=== PATIENT | female | born 1970 | race Caucasian/White ===

== ENCOUNTER 2016-11-24 15:28 | Inpatient (IN) | payer OTHER ==
[~2016-11-24] VITALS: Ht 170.2 cm; Wt 95.9 kg
[2016-11-24 15:29] VITALS: BP 121/64; PULSE 84; RESP 14; TEMP 98.3; O2SAT 99
--- NOTE | 2016-11-24 15:47 | PD ---
HPI Chief Complaint: Psychiatric Symptoms Time Seen by Provider: 15:47 Travel History International Travel<30 days: No Contact w/Intl Traveler<30days: No Traveled to known affect area: No History of Present Illness HPI This is a 46-year-old female with history of bipolar schizoaffective disorder, PTSD, presents to emergency department voluntarily for psychiatric evaluation. Patient states that she has been having thoughts of suicide with active plan to take her medication and overdose. Patient's accompanied by a female who states she has not been consistently taking her medication. She's been having more bizarre behavior. Patient also reports hearing voices. Denies any illicit drug use. Denies any alcohol consumption. Denies any acute medical needs. No other symptoms to report. PFSH Past Medical History Bipolar Disorder: Yes Schizophrenia: Yes Social History Alcohol Use: No Tobacco Use: No Substance Use: No Allergies-Medications (Allergen,Severity, Reaction): Coded Allergies: No Known Allergies (Unverified , 11/24/16) Review of Systems Except as stated in HPI: all other systems reviewed are Neg Physical Exam Narrative GENERAL: Well-nourished female patient, in no acute distress SKIN: Focused skin assessment warm/dry. HEAD: Atraumatic. Normocephalic. EYES: Pupils equal and round. No scleral icterus. No injection or drainage. ENT: No nasal bleeding or discharge. Mucous membranes pink and moist. NECK: Trachea midline. No JVD. CARDIOVASCULAR: Regular rate and rhythm. No murmur appreciated. RESPIRATORY: No accessory muscle use. Clear to auscultation. Breath sounds equal bilaterally. GASTROINTESTINAL: Abdomen soft, non-tender, nondistended. Hepatic and splenic margins not palpable. MUSCULOSKELETAL: No obvious deformities. No clubbing. No cyanosis. No edema. NEUROLOGICAL: Awake and alert. No obvious cranial nerve deficits. Motor grossly within normal limits. Normal speech. Data Data Last Documented VS Vital Signs Date Time Temp Pulse Resp B/P Pulse Ox O2 Delivery O2 Flow Rate FiO2 11/24/16 15:29 98.3 84 14 121/64 99 Orders Complete Blood Count With Diff (11/24/16 15:47) Basic Metabolic Panel (Bmp) (11/24/16 15:47) Urinalysis - C+S If Indicated (11/24/16 15:47) Psych Screen (11/24/16 15:47) Drug Screen, Random Urine (11/24/16 15:47) Alcohol (Ethanol) (11/24/16 15:47) Lorazepam (Ativan) (11/24/16 16:00) Labs Laboratory Tests Test 11/24/16 16:20 White Blood Count 8.7 TH/MM3 Red Blood Count 3.86 MIL/MM3 Hemoglobin 12.6 GM/DL Hematocrit 37.7 % Mean Corpuscular Volume 97.6 FL Mean Corpuscular Hemoglobin 32.6 PG Mean Corpuscular Hemoglobin 33.4 % Concent Red Cell Distribution Width 14.0 % Platelet Count 287 TH/MM3 Mean Platelet Volume 8.2 FL Neutrophils (%) (Auto) 61.9 % Lymphocytes (%) (Auto) 27.8 % Monocytes (%) (Auto) 6.6 % Eosinophils (%) (Auto) 2.9 % Basophils (%) (Auto) 0.8 % Neutrophils # (Auto) 5.4 TH/MM3 Lymphocytes # (Auto) 2.4 TH/MM3 Monocytes # (Auto) 0.6 TH/MM3 Eosinophils # (Auto) 0.3 TH/MM3 Basophils # (Auto) 0.1 TH/MM3 CBC Comment DIFF FINAL Differential Comment Sodium Level 141 MEQ/L Potassium Level 4.3 MEQ/L Chloride Level 108 MEQ/L Carbon Dioxide Level 29.5 MEQ/L Anion Gap 4 MEQ/L Blood Urea Nitrogen 5 MG/DL Creatinine 0.95 MG/DL Estimat Glomerular Filtration 63 ML/MIN Rate Random Glucose 82 MG/DL Calcium Level 8.9 MG/DL Urine Opiates Screen NEG Urine Barbiturates Screen NEG Urine Amphetamines Screen NEG Urine Benzodiazepines Screen NEG Urine Cocaine Screen NEG Urine Cannabinoids Screen NEG Ethyl Alcohol Level LESS THAN 3 MG/DL [facility] Medical Decision Making Medical Screen Exam Complete: Yes Emergency Medical Condition: Yes Medical Record Reviewed: Yes Differential Diagnosis Mood disorder versus personality disorder versus adjustment reaction disorder versus medication noncompliance Narrative Course 46-year-old female presents to the emergency department for evaluation. Patient appears distressed. She is reporting feeling very anxious about being here. Patient states that she needs psychiatric help. Lab work is without acute concern. Toxicology is negative. Patient is medically cleared to undergo psychiatric screening for further evaluation and disposition. Mental health screening discussed with the patient. Psychiatric screen ordered. Diagnosis Primary Impression: Mood disorder Additional Impression: Suicidal thoughts Condition: Stable Angela Renner Nov 24, 2016 15:47
[2016-11-24] MEDS ORDERED: LORazepam 1 MG TAB PO ONE (16:00)
[2016-11-24 16:57] LABS: AUTOMATED NEUTROPHIL # 5.4 TH/MM3 (1.8-7.7); BASOPHIL # 0.1 TH/MM3 (0-0.2); BASOPHIL % 0.8 % (0.0-2.0); EOSINOPHIL # 0.3 TH/MM3 (0-0.4); EOSINOPHIL % 2.9 % (0.0-4.0); HEMATOCRIT 37.7 % (35.0-46.0); HEMO FLAGS DIFF FINAL; LYMPH % 27.8 % (9.0-44.0); LYMPHOCYTE # 2.4 TH/MM3 (1.0-4.8); MEAN CELL VOLUME 97.6 FL (80.0-100.0); MEAN CORPUSCULAR HEMOGLOBIN 32.6 PG (27.0-34.0); MEAN CORPUSCULAR HGB CONC 33.4 % (32.0-36.0); MONO % 6.6 % (0.0-8.0); NEUT % 61.9 % (16.0-70.0); PLATELET COUNT 287 TH/MM3 (150-450); RED BLOOD COUNT 3.86 MIL/MM3 (4.00-5.30); WHITE BLOOD COUNT 8.7 TH/MM3 (4.0-11.0)
[2016-11-24 17:01] LABS: AMPHETAMINE, URINE NEG (NEG); BARBITURATES, URINE NEG (NEG); COCAINE, URINE NEG (NEG)
[2016-11-24 17:03] LABS: ANION GAP 4 MEQ/L (5-15); BICARBONATE 29.5 MEQ/L (21.0-32.0); BLOOD UREA NITROGEN 5 MG/DL (7-18); CHLORIDE 108 MEQ/L (98-107); GLOMERULAR FILTRATION RATE 63 ML/MIN (>89); POTASSIUM 4.3 MEQ/L (3.5-5.1); SODIUM (NA) 141 MEQ/L (136-145)
[2016-11-24] MEDS ORDERED: LURA120T PO (17:53)
[2016-11-24] MEDS ORDERED: LAMO150T PO (17:53)
[2016-11-24] MEDS ORDERED: FLUO40CA PO (17:53)
[2016-11-24] MEDS ORDERED: GABA600T PO (17:53)
[2016-11-24 18:18] VITALS: BP 122/67; PULSE 58; RESP 16; TEMP 92.2; O2SAT 100
[2016-11-24 22:15] VITALS: BP 120/71; PULSE 59; RESP 19; TEMP 96.8; O2SAT 98
[2016-11-25] MEDS ORDERED: diphenhydrAMINE HCL 50 MG/ML VIAL - HS PRN IM (00:30)
[2016-11-25] MEDS ORDERED: ACETAMINOPHEN 325 MG TAB PO PRN ×2 (00:30→11:30)
[2016-11-25] MEDS ORDERED: diphenhydrAMINE HCL 50 MG/ML VIAL IM PRN (00:30)
[2016-11-25] MEDS ORDERED: MAGNESIUM HYDROXIDE SUSP 30 ML CUP PO PRN ×2 (00:30→11:30)
[2016-11-25] MEDS ORDERED: diphenhydrAMINE HCL 50 MG CAP PO PRN (00:30)
[2016-11-25] MEDS ORDERED: ALUMINUM/MAGNESIUM/SIMETH 30 ML CUP PO PRN ×2 (00:30→11:30)
[2016-11-25 02:07] VITALS: BP 115/61; PULSE 59; RESP 20; TEMP 98.1; O2SAT 98
[2016-11-25] MEDS: traZODone HCL 50 MG TAB PO PRN ×2 (02:15→22:25)
[2016-11-25] MEDS: hydrOXYzine HCL 50 MG TAB PO PRN ×2 (02:15→22:25)
[2016-11-25 06:12] VITALS: BP 115/61; PULSE 59; RESP 20; TEMP 98.1; O2SAT 98
[2016-11-25] MEDS ORDERED: LURASIDONE 40 MG TAB PO SCH (09:00)
[2016-11-25] MEDS: lamoTRIgine 25 MG TAB PO SCH (09:32)
[2016-11-25] MEDS: lamoTRIgine 100 MG TAB PO SCH (09:32)
[2016-11-25] MEDS: FLUoxetine HCL 20 MG CAP PO SCH (09:33)
[2016-11-25] MEDS: NICOTINE 21 MG/24 HR PATCH T-DERMAL SCH (09:33)
[2016-11-25] MEDS ORDERED: lamoTRIgine 100 MG TAB PO SCH (11:30)
[2016-11-25] MEDS ORDERED: NICOTINE 21 MG/24 HR PATCH T-DERMAL SCH (11:30)
[2016-11-25] MEDS ORDERED: FLUoxetine HCL 20 MG CAP PO SCH (11:30)
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
[2016-11-25 16:02] VITALS: BP 115/66; PULSE 108; RESP 18; TEMP 96.5; O2SAT 97
[2016-11-25] MEDS: REMOVE OLD NICOTINE PATCH T-DERMAL SCH (21:00)
[2016-11-25] MEDS ORDERED: GABAPENTIN 300 MG CAP PO SCH (21:00)
[2016-11-25] MEDS: GABAPENTIN 300 MG CAP PO SCH (21:00)
[2016-11-26 06:15] VITALS: BP 106/56; PULSE 59; RESP 18; TEMP 98.1; O2SAT 99
[2016-11-26] MEDS: lamoTRIgine 100 MG TAB PO SCH (09:01)
[2016-11-26] MEDS: FLUoxetine HCL 20 MG CAP PO SCH (09:02)
[2016-11-26] MEDS: lamoTRIgine 25 MG TAB PO SCH (09:03)
[2016-11-26] MEDS: LURASIDONE 40 MG TAB PO SCH (09:03)
[2016-11-26] MEDS: NICOTINE 21 MG/24 HR PATCH T-DERMAL SCH (09:04)
[2016-11-26 10:42] LABS: ANION GAP 8 MEQ/L (5-15); BICARBONATE 25.8 MEQ/L (21.0-32.0); BLOOD UREA NITROGEN 10 MG/DL (7-18); CHLORIDE 107 MEQ/L (98-107); GLOMERULAR FILTRATION RATE 73 ML/MIN (>89); POTASSIUM 4.1 MEQ/L (3.5-5.1); SODIUM (NA) 141 MEQ/L (136-145)
[2016-11-26 10:45] LABS: LDL CHOLESTEROL 133 MG/DL (0-99)
[2016-11-26 12:42] LABS: AUTOMATED NEUTROPHIL # 6.1 TH/MM3 (1.8-7.7); BASOPHIL # 0.1 TH/MM3 (0-0.2); BASOPHIL % 0.8 % (0.0-2.0); EOSINOPHIL # 0.2 TH/MM3 (0-0.4); HEMATOCRIT 39.9 % (35.0-46.0); HEMO FLAGS DIFF FINAL; LYMPH % 16.6 % (9.0-44.0); LYMPHOCYTE # 1.4 TH/MM3 (1.0-4.8); MEAN CELL VOLUME 98.3 FL (80.0-100.0); MEAN CORPUSCULAR HEMOGLOBIN 32.9 PG (27.0-34.0); MEAN CORPUSCULAR HGB CONC 33.5 % (32.0-36.0); MONO % 5.5 % (0.0-8.0); NEUT % 74.1 % (16.0-70.0); PLATELET COUNT 271 TH/MM3 (150-450); RED BLOOD COUNT 4.06 MIL/MM3 (4.00-5.30); RED CELL DISTRIBUTION WIDTH 13.9 % (11.6-17.2); WHITE BLOOD COUNT 8.2 TH/MM3 (4.0-11.0)
[2016-11-26 13:03] LABS: HEMOGLOBIN A1a 1.6 %; HEMOGLOBIN A1b 0.8 %; HEMOGLOBIN Ao 85.4 %; HEMOGLOBIN F 0.8 %; HEMOGLOBIN P3 3.4 %
--- NOTE | 2016-11-26 14:04 | HHI.PYPN ---
Subjective Remarks Patient seen in her room with nurse Denice, chart review, patient compliant medication. Patient states she slept better last night though her mood remains depressed. She says the is suicidal thoughts are somewhat scattered today. She states she had a good conversation with her significant other. For now continue treatment Review of Systems Except as stated in HPI: all other systems reviewed are Neg Objective Alert: Yes [place]: Person, Place, Date Mood: Calm, Depressed Affect: Other (decreased range and intensity) Memory Intact: Comment (fair) Hallucinations: Other (denies) Delusions: No Delusion Type: Other (denies) Suicidal: Ideation (suicidal thoughts are somewhat intermittent) Homicidal: Ideation Insight/Judgment Poor Labs Test 11/26/16 11/26/16 09:56 11:37 Sodium Level 141 MEQ/L Potassium Level 4.1 MEQ/L Chloride Level 107 MEQ/L Carbon Dioxide Level 25.8 MEQ/L Anion Gap 8 MEQ/L Blood Urea Nitrogen 10 MG/DL Creatinine 0.84 MG/DL Estimat Glomerular Filtration 73 ML/MIN Rate Random Glucose 65 MG/DL Calcium Level 9.0 MG/DL Triglycerides Level 72 MG/DL Cholesterol Level 210 MG/DL LDL Cholesterol 133 MG/DL HDL Cholesterol 63.0 MG/DL Cholesterol/HDL Ratio 3.33 RATIO White Blood Count 8.2 TH/MM3 Red Blood Count 4.06 MIL/MM3 Hemoglobin 13.4 GM/DL Hematocrit 39.9 % Mean Corpuscular Volume 98.3 FL Mean Corpuscular Hemoglobin 32.9 PG Mean Corpuscular Hemoglobin 33.5 % Concent Red Cell Distribution Width 13.9 % Platelet Count 271 TH/MM3 Mean Platelet Volume 8.6 FL Neutrophils (%) (Auto) 74.1 % Lymphocytes (%) (Auto) 16.6 % Monocytes (%) (Auto) 5.5 % Eosinophils (%) (Auto) 3.0 % Basophils (%) (Auto) 0.8 % Neutrophils # (Auto) 6.1 TH/MM3 Lymphocytes # (Auto) 1.4 TH/MM3 Monocytes # (Auto) 0.5 TH/MM3 Eosinophils # (Auto) 0.2 TH/MM3 Basophils # (Auto) 0.1 TH/MM3 CBC Comment DIFF FINAL Differential Comment Vitals/IOs Vital Signs Date Time Temp Pulse Resp B/P Pulse Ox O2 Delivery O2 Flow Rate FiO2 11/26/16 06:15 98.1 59 18 106/56 99 11/24/16 22:15 Room Air Assessment & Plan Problem List: (1) Schizoaffective disorder, bipolar type ICD Code: F25.0 Assessment & Plan Estimated LOS: days patient remains depressed and suicidal, compliant medications, for now continue treatment Justification for Cont. Inpt. At this time patient will decompensate if placed in a lower level of care Discharge Planning To be determined Request HC Surrog/Guard Advoc?: No Watson Cyo MD Nov 26, 2016 14:04
[2016-11-26 18:10] VITALS: BP 113/58; PULSE 58; RESP 16; TEMP 98; O2SAT 99
[2016-11-26] MEDS: REMOVE OLD NICOTINE PATCH T-DERMAL SCH (21:00)
[2016-11-26] MEDS: GABAPENTIN 300 MG CAP PO SCH (22:18)
[2016-11-26] MEDS: diphenhydrAMINE HCL 50 MG CAP - HS PRN PO (22:23)
[2016-11-26] MEDS: hydrOXYzine HCL 50 MG TAB PO PRN (22:23)
[2016-11-27 03:19] LABS: BLOOD, URINE NEG (NEG); GLUCOSE,URINE NEG (NEG); KETONE, URINE NEG (NEG); MUCUS URINE FEW /lpf (OCC); NITRITE,URINE NEG (NEG); URINE COLOR LIGHT-YELLOW (YELLW/STRAW)
[2016-11-27 03:22] LABS: COMMENT (UR) CULT NOT INDICATED; CULTURE IF INDICATED CULT NOT INDICATED
[2016-11-27 05:51] VITALS: BP 106/53; PULSE 61; RESP 18; TEMP 97.7
[2016-11-27] MEDS: NICOTINE 21 MG/24 HR PATCH T-DERMAL SCH (09:00)
[2016-11-27] MEDS: lamoTRIgine 25 MG TAB PO SCH (09:21)
[2016-11-27] MEDS: FLUoxetine HCL 20 MG CAP PO SCH (09:22)
[2016-11-27] MEDS: LURASIDONE 40 MG TAB PO SCH (09:22)
[2016-11-27] MEDS: lamoTRIgine 100 MG TAB PO SCH (09:22)
--- NOTE | 2016-11-27 14:54 | HHI.PYPN ---
Subjective Remarks Patient seen in her room with nurse Denice and medical student Shane. Chart reviewed. Patient compliant with medications. States she had a poor night last night and day today with some increased suicidal ideation. She continues with the willingness to take the suicide pill if offered. She is vague about any perceptual abnormalities. It appears she has some unrealistic expectations for medication at this time for now continue medication no change though consider perhaps the addition of a second generation antipsychotic perhaps to replace the Latuda Review of Systems Except as stated in HPI: all other systems reviewed are Neg Objective Alert: Yes [place]: Person, Place, Date Mood: Calm, Depressed Affect: Other (decreased range and intensity) Memory Intact: Comment (fair) Hallucinations: Other (denies) Delusions: No Delusion Type: Other (denies) Suicidal: Ideation (suicidal thoughts are somewhat intermittent) Homicidal: Ideation Insight/Judgment Poor Labs Test 11/27/16 02:30 Urine Color LIGHT-YELLOW Urine Turbidity CLEAR Urine pH 7.0 Urine Specific [place] 1.010 Urine Protein NEG mg/dL Urine Glucose (UA) NEG mg/dL Urine Ketones NEG mg/dL Urine Occult Blood NEG Urine Nitrite NEG Urine Bilirubin NEG Urine Urobilinogen LESS THAN 2.0 MG/DL Urine Leukocyte Esterase NEG Urine Mucus FEW /lpf Microscopic Urinalysis Comment CULT NOT INDICATED Vitals/IOs Vital Signs Date Time Temp Pulse Resp B/P Pulse Ox O2 Delivery O2 Flow Rate FiO2 11/27/16 05:51 97.7 61 18 106/53 11/26/16 18:10 99 11/24/16 22:15 Room Air Assessment & Plan Problem List: (1) Schizoaffective disorder, bipolar type ICD Code: F25.0 Assessment & Plan Estimated LOS: days patient continues depressed and suicidal, will continue treatment no change consider change in medication of no improvement with the next 1-2 days Justification for Cont. Inpt. At this time patient decompensated placed in a lower level of care Discharge Planning To be determined Request HC Surrog/Guard Advoc?: No Watson Coy MD Nov 27, 2016 14:54
[2016-11-27 15:59] VITALS: BP 121/68; PULSE 71; RESP 18; TEMP 98.1; O2SAT 98
[2016-11-27] MEDS: REMOVE OLD NICOTINE PATCH T-DERMAL SCH (21:00)
[2016-11-27] MEDS: diphenhydrAMINE HCL 50 MG CAP - HS PRN PO (22:22)
[2016-11-27] MEDS: hydrOXYzine HCL 50 MG TAB PO PRN (22:22)
[2016-11-27] MEDS: GABAPENTIN 300 MG CAP PO SCH (22:22)
[2016-11-28 06:42] VITALS: BP 154/85; PULSE 56; RESP 16; TEMP 97.6; O2SAT 97
[2016-11-28] MEDS: lamoTRIgine 100 MG TAB PO SCH (08:33)
[2016-11-28] MEDS: LURASIDONE 40 MG TAB PO SCH (08:33)
[2016-11-28] MEDS: lamoTRIgine 25 MG TAB PO SCH (08:33)
[2016-11-28] MEDS: FLUoxetine HCL 20 MG CAP PO SCH (08:34)
[2016-11-28] MEDS: NICOTINE 21 MG/24 HR PATCH T-DERMAL SCH (08:34)
--- NOTE | 2016-11-28 14:19 | HHI.PYPN ---
Subjective Remarks Patient seen in day room nurse Lowell Mejias chart review, patient compliant medications. Patient continues to feel depressed with some anxiety and irritability also at times. Though she had a good visit with her significant other last night. She is vague about suicidality vague about voices. For now we will increase Latuda 120 mg daily continue other medication Review of Systems Except as stated in HPI: all other systems reviewed are Neg Objective Alert: Yes [place]: Person, Place, Date Mood: Calm, Depressed Affect: Other (decreased range and intensity) Memory Intact: Comment (fair) Hallucinations: Other (denies) Delusions: No Delusion Type: Other (denies) Suicidal: Ideation (suicidal thoughts are somewhat intermittent) Homicidal: Ideation Insight/Judgment Poor Vitals/IOs Vital Signs Date Time Temp Pulse Resp B/P Pulse Ox O2 Delivery O2 Flow Rate FiO2 11/28/16 06:42 97.6 56 16 154/85 97 11/24/16 22:15 Room Air Intake and Output 11/27/16 11/27/16 11/28/16 08:00 16:00 00:00 Intake Total 240 ml 240 ml Balance 240 ml 240 ml Assessment & Plan Problem List: (1) Schizoaffective disorder, bipolar type ICD Code: F25.0 Assessment & Plan Estimated LOS: days patient continues depressed with some increased expression of anger though coping and controlling it. Will increase Latuda 2020 mg daily Justification for Cont. Inpt. At this time patient will decompensate then placed in the lower level of care Discharge Planning To be determined Request HC Surrog/Guard Advoc?: No Watson Coy MD Nov 28, 2016 14:19
[2016-11-28 17:36] VITALS: BP 111/53; PULSE 75; RESP 16; TEMP 98.2; O2SAT 97
[2016-11-28] MEDS: REMOVE OLD NICOTINE PATCH T-DERMAL SCH (21:00)
[2016-11-28] MEDS: GABAPENTIN 300 MG CAP PO SCH (21:48)
[2016-11-28] MEDS: hydrOXYzine HCL 50 MG TAB PO PRN (21:49)
[2016-11-28] MEDS: traZODone HCL 50 MG TAB PO PRN (21:51)
[2016-11-29 06:51] VITALS: BP 90/46; PULSE 63; RESP 16; TEMP 97.5; O2SAT 95
[2016-11-29] MEDS: LURASIDONE 40 MG TAB PO SCH (08:59)
[2016-11-29] MEDS: FLUoxetine HCL 20 MG CAP PO SCH (08:59)
[2016-11-29] MEDS: NICOTINE 21 MG/24 HR PATCH T-DERMAL SCH (08:59)
[2016-11-29] MEDS: lamoTRIgine 25 MG TAB PO SCH (09:00)
[2016-11-29] MEDS: lamoTRIgine 100 MG TAB PO SCH (09:00)
--- NOTE | 2016-11-29 15:35 | HHI.PYPN ---
Subjective Remarks Pt seen and discussed with staff. She is tolerating medication without side effects. She reports that mood is better today and today she has not had suicidal ideations. "I"m actually surprised." She has been trying to distract self from negative thoughts. No SI/HI. Objective Alert: Yes [place]: Person, Place, Date Mood: Calm, Depressed Affect: Other (decreased range and intensity) Memory Intact: Comment (fair) Hallucinations: Other (denies) Delusions: No Delusion Type: Other (denies) Suicidal: Ideation (denies) Homicidal: Ideation (denies) Insight/Judgment poor Vitals/IOs Vital Signs Date Time Temp Pulse Resp B/P Pulse Ox O2 Delivery O2 Flow Rate FiO2 11/29/16 06:51 97.5 63 16 90/46 95 Intake and Output 11/28/16 11/28/16 11/29/16 08:00 16:00 00:00 Intake Total 240 ml 240 ml Balance 240 ml 240 ml Assessment & Plan Problem List: (1) Schizoaffective disorder, bipolar type ICD Code: F25.0 Assessment & Plan Continue current tx plan. Estimated LOS: days Justification for Cont. Inpt. risk of decompensation Request HC Surrog/Guard Advoc?: No Miriam Rosales MD Nov 29, 2016 15:35
[2016-11-29 18:00] VITALS: BP 100/56; PULSE 61; RESP 16; TEMP 98.4; O2SAT 98
[2016-11-29] MEDS: REMOVE OLD NICOTINE PATCH T-DERMAL SCH (21:00)
[2016-11-29] MEDS: traZODone HCL 50 MG TAB PO PRN (21:03)
[2016-11-29] MEDS: GABAPENTIN 300 MG CAP PO SCH (21:03)
[2016-11-30] MEDS: NICOTINE 21 MG/24 HR PATCH T-DERMAL SCH (09:00)
[2016-11-30] MEDS: FLUoxetine HCL 20 MG CAP PO SCH (09:26)
[2016-11-30] MEDS: LURASIDONE 40 MG TAB PO SCH (09:26)
[2016-11-30] MEDS: lamoTRIgine 100 MG TAB PO SCH (09:26)
[2016-11-30] MEDS: lamoTRIgine 25 MG TAB PO SCH (09:26)
--- NOTE | 2016-11-30 15:36 | HHI.PYPN ---
Subjective Remarks Pt seen and discussed with staff. She reports mood continues to improve and she denies SI/HI. She is compliant with medication and denies side effects. She has been pleasant and cooperative with care. Objective Alert: Yes [place]: Person, Place, Date Mood: Calm Affect: Restricted Memory Intact: Comment (fair) Hallucinations: Other (denies) Delusions: No Delusion Type: Other (denies) Suicidal: Ideation (denies) Homicidal: Ideation (denies) Insight/Judgment fair Vitals/IOs Vital Signs Date Time Temp Pulse Resp B/P Pulse Ox O2 Delivery O2 Flow Rate FiO2 11/29/16 18:00 98.4 61 16 100/56 98 Assessment & Plan Problem List: (1) Schizoaffective disorder, bipolar type ICD Code: F25.0 Assessment & Plan Continue current tx plan. Pt improving. Estimated LOS: days Justification for Cont. Inpt. risk of decompensation Request HC Surrog/Guard Advoc?: No Miriam Rosales MD Nov 30, 2016 15:36
[2016-11-30 17:18] VITALS: BP 132/79; PULSE 77; RESP 18; TEMP 96.7; O2SAT 95
[2016-11-30] MEDS: REMOVE OLD NICOTINE PATCH T-DERMAL SCH (21:00)
[2016-11-30] MEDS: GABAPENTIN 300 MG CAP PO SCH ×2 (21:00→22:20)
[2016-11-30] MEDS: traZODone HCL 50 MG TAB PO PRN (22:21)
[2016-11-30] MEDS: diphenhydrAMINE HCL 50 MG CAP - HS PRN PO (22:28)
[2016-12-01] MEDS: NICOTINE 21 MG/24 HR PATCH T-DERMAL SCH (09:00)
[2016-12-01] MEDS: FLUoxetine HCL 20 MG CAP PO SCH (09:56)
[2016-12-01] MEDS: LURASIDONE 40 MG TAB PO SCH (09:56)
[2016-12-01] MEDS: lamoTRIgine 100 MG TAB PO SCH (09:56)
[2016-12-01] MEDS: lamoTRIgine 25 MG TAB PO SCH (09:56)
--- NOTE | 2016-12-01 11:44 | PD.TTN ---
Present for Treatment Team Treatment Team Staff: Provider (Dr. Coy), Psych Therapist (Maria), Occupational Therapist (Belia) Patient Problems 1. Discharge planning 2. Medication compliance 3. Knowledge deficit 4. Lack of coping skills Progress Toward Goals Provider Input: Patient has had elevated mood since Thursday. Patient complaint with medications and wants to work on decreasing feelings of depression. Psych Therapist Input: Upon last assessment, patient had low mood and increased feelings of depression. patient was stating that she felt the same mood since her admission. Patient is noted to have some minor medication changes and it has somewhat increased. Occupational Therapist Input: Patient was seen playing basketball and talking with peers on the unit. Maria Capone [facility] Dec 01, 2016 11:43
--- NOTE | 2016-12-01 12:59 | HHI.PYPN ---
Subjective Remarks Patient discussed with treatment team, chart review, patient seen in [facility] with nurse Etienne. Patient states she had a good weekend. Sleep is improved. Energy level is improved she is socializing more enjoying TV and speaking with other patients. She also states the suicidal ideation is gone today. Her affect is improved she has good eye contact for now continue treatment Review of Systems Except as stated in HPI: all other systems reviewed are Neg Objective Alert: Yes [place]: Person, Place, Date Mood: Calm Affect: Restricted Memory Intact: Comment (fair) Hallucinations: Other (denies) Delusions: No Delusion Type: Other (denies) Suicidal: Ideation (denies) Homicidal: Ideation (denies) Insight/Judgment Poor Vitals/IOs Vital Signs Date Time Temp Pulse Resp B/P Pulse Ox O2 Delivery O2 Flow Rate FiO2 11/30/16 17:18 96.7 77 18 132/79 95 Assessment & Plan Problem List: (1) Schizoaffective disorder, bipolar type ICD Code: F25.0 Assessment & Plan Estimated LOS: days patient continues to slowly improve, now states suicidal ideation has gone she is compliant with medications has better energy, socializing, anticipating and groups Justification for Cont. Inpt. At this time patient will decompensate and placed a lower level of care Discharge Planning To be determined Request HC Surrog/Guard Advoc?: No Watson Coy MD Dec 01, 2016 12:59
[2016-12-01] MEDS: REMOVE OLD NICOTINE PATCH T-DERMAL SCH (21:00)
[2016-12-01] MEDS: traZODone HCL 50 MG TAB PO PRN (21:25)
[2016-12-01] MEDS: GABAPENTIN 300 MG CAP PO SCH (21:25)
[2016-12-01] MEDS: diphenhydrAMINE HCL 50 MG CAP - HS PRN PO (21:26)
[2016-12-02 06:09] VITALS: BP 100/68; PULSE 64; RESP 18; TEMP 97.3; O2SAT 97
[2016-12-02] MEDS: NICOTINE 21 MG/24 HR PATCH T-DERMAL SCH (08:50)
[2016-12-02] MEDS: lamoTRIgine 100 MG TAB PO SCH (08:51)
[2016-12-02] MEDS: LURASIDONE 40 MG TAB PO SCH (08:51)
[2016-12-02] MEDS: lamoTRIgine 25 MG TAB PO SCH (08:51)
[2016-12-02] MEDS: FLUoxetine HCL 20 MG CAP PO SCH (08:52)
[2016-12-02] MEDS ORDERED: PROZ40CA PO (13:25)
[2016-12-02] MEDS ORDERED: LURA120T PO (13:25)
[2016-12-02] MEDS ORDERED: GABA600T PO (13:25)
[2016-12-02] MEDS ORDERED: LAMO150T PO (13:25)
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
== END 2016-12-02 16:00 | disposition home or self-care (01) | DRG 885 ==
LOC: NEPD 15:28 → NEDA 11-25 00:08 → H260 11-25 01:15
PROVIDERS: ADMIT Psychiatry & Neurology Psychiatry; ATTEND Psychiatry & Neurology Psychiatry
DX: F25.0 Schizoaffective disorder, bipolar type (principal); R45.851 Suicidal ideations; F43.10 Post-traumatic stress disorder, unspecified; Z62.810 Personal history of physical and sexual abuse in childhood; Z96.659 Presence of unspecified artificial knee joint; F17.210 Nicotine dependence, cigarettes, uncomplicated
CPT/HCPCS: 80048; 80061; 80307; 81001; 83036; 85025; Q0163